=== PATIENT | male | born 1960 | race American Indian/Alaskan Native ===

== ENCOUNTER 2018-08-24 19:22 | Emergency (ER) | payer MEDICAID ==
[2018-08-24 19:41] VITALS: BMI 26.4
--- NOTE | 2018-08-24 19:46 | C.PDOC ---
History Of Present Illness 58 year old male brought in by EMS after being found sleeping outside intoxicated. Patient found to be bizarre, uncooperative, and violent, brought in by EMS in restraints. Patient has a Hx of PTSD, anxiety, and ETOH abuse. <Ian Martinez - Last Filed: 08/25/18 01:05> History Per: EMS History/Exam Limitations: no limitations Onset/Duration Of Symptoms: Hrs Current Symptoms Are (Timing): Still Present Suicide/Self Injury Attempted (Context): None Modifying Factor(s): Alcohol Recent travel outside of the [place]: No <Ian Martinez - Last Filed: 08/25/18 01:05> <Catrina Muñoz - Last Filed: 08/25/18 06:49> Time Seen by Provider: 08/24/18 19:37 Chief Complaint (Nursing): Substance Abuse Past Medical History Reviewed: Historical Data, Nursing Documentation, Vital Signs Family History: States: Unknown Family Hx <Ian aMrtinez - Last Filed: 08/25/18 01:05> Vital Signs: Last Vital Signs Temp 98.1 F 08/25/18 05:35 Pulse 91 H 08/25/18 05:35 Resp 18 08/25/18 05:35 BP 122/79 08/25/18 05:35 Pulse Ox 96 08/25/18 05:35 <Catrina Muñoz - Last Filed: 08/25/18 06:49> Review Of Systems Review Of Systems: ROS cannot be obtained secondary to pt's inabilty to answer questions. <Ian Martinez - Last Filed: 08/25/18 01:05> Physical Exam - Physical Exam Appears: Non-toxic, Other (Bizarre, ETOH on breath, Verbally abusive) Skin: Normal Color, Warm, Dry Head: Atraumatic, Normacephalic Eye(s): bilateral: Normal Inspection Oral Mucosa: Moist Chest: Symmetrical, No Tenderness Cardiovascular: Rhythm Regular Respiratory: Normal Breath Sounds, No Rales, No Rhonchi, No Wheezing Gastrointestinal/Abdominal: Soft, No Tenderness Extremity: Normal ROM (x4) Neurological/Psych: Oriented x3, Normal Speech <Ian Martinez Last Filed: 08/25/18 01:05> ED Course And Treatment - Laboratory Results Result Diagrams: 08/24/18 20:40 08/24/18 20:40 Lab Interpretation: Abnormal (ETOH 297) Reevaluation Time: 01:06 Reassessment Condition: Improved (sleeping well, on monitor) - Physician Consult Information Outcome Of Conversation: d/w Crisis, pending sobriety for interview <Ian Martinez - Last Filed: 08/25/18 01:05> - Laboratory Results Result Diagrams: 08/24/18 20:40 08/24/18 20:40 O2 Sat by Pulse Oximetry: 96 Pulse Ox Interpretation: Normal <Catrina Muñoz - Last Filed: 08/25/18 06:49> Medical Decision Making Medical Decision Making: h/o mental illness, ETOH 297H Sedated for safety@ 8PM, pending sobriety for Crisis eval 0100: signed over to overnight MD <Ian Martinez - Last Filed: 08/25/18 01:05> Disposition - Disposition Disposition Time: 01:00 <Ian Martinez - Last Filed: 08/25/18 01:05> Counseled Patient/Family Regarding: Studies Performed, Diagnosis, Need For Followup <Catrina Muñoz - Last Filed: 08/25/18 06:49> - Disposition Referrals: [facility] [Outside] Condition: GOOD Instructions: Alcohol Abuse and Alcoholism (DC), Effects of Alcohol on Your Health Forms: [facility] (Latvian) - Clinical Impression Clinical Impression: Alcohol abuse, Alcohol intoxication - Scribe Statement The provider has reviewed the documentation as recorded by the Scribe Greyson Rajan All medical record entries made by the Scribe were at my direction and personally dictated by me. I have reviewed the chart and agree that the record accurately reflects my personal performance of the history, physical exam, medical decision making, and the department course for this patient. I have also personally directed, reviewed, and agree with the discharge instructions and disposition. <Ian Martinez - Last Filed: 08/25/18 01:05> Physician Patient Turnover Patient Signed Over To: Catrina Muñoz Handoff Comments: pending sobriety and Crisis Eval <Ian Martinez - Last Filed: 08/25/18 01:05>
[2018-08-24 20:43] LABS: BASO # 0.1 K/uL (0.0-0.2); BASO % 1.9 % (0.0-2.0); EOS # 0.1 K/uL (0.0-0.7); EOS % 1.5 % (0.0-4.0); HEMOGLOBIN 14.1 g/dL (12.0-18.0); LYMPH # 1.4 K/uL (1.0-4.3); LYMPH % 39.6 % (20.0-40.0); MEAN CELL VOLUME 91.9 fL (80.0-94.0); MEAN CORPUSCULAR HEMOGLOBIN 30.4 pg (27.0-31.0); MEAN CORPUSCULAR HGB CONC 33.1 g/dL (33.0-37.0); MEAN PLATELET VOLUME 8.3 fL (7.2-11.7); MONO # 0.3 K/uL (0.0-0.8); MONO % 8.8 % (0.0-10.0); NEUT # 1.6 K/uL (1.8-7.0); NEUT % 48.2 % (50.0-75.0); RBC 4.63 Mil/uL (4.40-5.90); RED CELL DISTRIBUTION WIDTH 14.6 % (11.5-14.5); WHITE BLOOD COUNT 3.4 K/uL (4.8-10.8)
[2018-08-24 20:56] LABS: ACETAMINOPHEN < 10.0 ug/mL (10.0-30.0); SALICYLATE < 1.0 [, mg/dL 1]
[2018-08-24 20:59] LABS: ALB/GLOB RATIO 1.4 (1.0-2.1); ALBUMIN 4.5 g/dL (3.5-5.0); ALT/SGPT 21 U/L (21-72); AST/SGOT 41 U/L (17-59); BLOOD UREA NITROGEN 16 mg/dL (9-20); CALCIUM 9.3 mg/dl (8.6-10.4); GFR NON-AFRICAN AMERICAN > 60
[2018-08-25 03:20] LABS: GRANULAR CAST 86 /lpf (0-1); SQUAMOUS EPITHIAL 1 /hpf (0-5); URINE BILIRUBIN NEGATIVE (NEGATIVE); URINE BLOOD 1+ (NEGATIVE); URINE CLARITY Clear (Clear); URINE COLOR Yellow (YELLOW); URINE GLUCOSE (UA) NORMAL (Normal); URINE LEUKOCYTE ESTERASE NEG Leu/uL (Negative); URINE PROTEIN NEGATIVE (NEGATIVE); URINE UROBILINOGEN NORMAL mg/dL (0.2-1.0)
[2018-08-25 03:28] LABS: BARBITURATES, UR NEGATIVE (NEGATIVE); BENZODIAZEPINES, UR NEGATIVE (NEGATIVE); OPIATES, UR NEGATIVE (NEGATIVE); PHENCYCLIDINE, UR NEGATIVE (NEGATIVE)
[2018-08-25 05:40] VITALS: RESP 18
[2018-08-25 06:53] VITALS: BP 131/77; PULSE 88; TEMP 98.4; O2SAT 98
== END 2018-08-25 06:55 | disposition home or self-care (01) ==
LOC: C.ER 19:22
DX: F10.129 Alcohol abuse with intoxication, unspecified (principal); F43.10 Post-traumatic stress disorder, unspecified
CPT/HCPCS: 80053; 80320; 80324; 80329; 80345; 80346; 80349; 80353; 80358; 80361; 81001; 82948; 83735; 83992; 84100; 85025; 96372; 99285; J2060; J3486